=== PATIENT | female | born 1970 | race Caucasian/White ===

== ENCOUNTER 2025-09-20 19:17 | Inpatient (IN) | payer BC, SELFPAY ==
[2025-09-20] VITALS (9 sets, daily range): BP systolic 110–167; BP diastolic 68–104; PULSE 84–129; RESP 18–98; TEMP 36.3; O2SAT 97–98; BMI 34.3; BMI 34.9
--- NOTE | 2025-09-20 19:22 | EKG_ITS ---
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
--- NOTE | 2025-09-20 19:42 | XR_ITS ---
EXAMINATION: AP chest single view TECHNIQUE: AP portable upright chest single view Date and time: September 20, 2025, 1954 hours INDICATIONS: Arrhythmia cardiac palpitations today. FINDINGS: Mild prominence left ventricle No pneumonia or pulmonary edema. Moderate osteopenia IMPRESSION: No pneumonia or pulmonary edema
--- NOTE | 2025-09-20 19:42 | PD.EDARRY ---
ED Arrhythmia Palp. RME/HPI General Chief Complaint: Arrhythmia/Palpitations Stated Complaint: HEART RACING Time Seen by Provider: 09/20/25 19:44 Arrival date/time: 09/20/25 19:17 RME / HPI RME / HPI narrative: See [facility] for Dr. Wells's HPI Documentation. Related Data Home Medications ?Medication ?Instructions ?Recorded ?Confirmed levothyroxine 75 mcg tablet 75 mcg PO DAILY ##0 09/29/12 09/20/25 (Synthroid) Hydroxychloroquine Sulfate 200 mg PO QDAY ##30 05/29/16 09/20/25 abatacept 125 mg/mL subcutaneous 125 mg subcut QDAY 09/20/25 09/21/25 auto-injector (Orencia ClickJect) Allergies Allergy/AdvReac Type Severity Reaction Status Date / Time erythromycin base AdvReac Mild Nausea/Vomi Verified 06/01/16 15:07 tiing Review of Systems Review of Systems Systems Reviewed: All systems reviewed, normal except as documented Past Medical History Past Medical History CARDIAC: Positive Atrial Fibrillation ENDOCRINE: Positive Hypothyroidism ED Exam Narrative Physical exam: See [facility] for Dr. Wells's Physical Exam Documentation. Course Quality Measures none Orders Category Date Time Status EKG (ED ONLY) *Do not use* NOW Care 09/20/25 19:22 Completed EKG (ED Only) Stat Exams 09/20/25 19:22 Draft Vital Signs Vital signs: Vital Signs Temperature 97.4 F 09/20/25 19:38 Pulse Rate 118 H 09/20/25 19:38 Respiratory Rate 18 09/20/25 19:38 Blood Pressure 167/92 H 09/20/25 19:38 Pulse Oximetry (%) 98 09/20/25 19:38 Oxygen Delivery Method Room Air 09/20/25 19:38 Arrhythmia/Palpitations [facility] Narrative [facility] Narrative:: This section includes all my notes and documentations, including HPI, PE, and ED course. 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 Last episode several years ago. Hasn't taken Eliquis or metoprolol for several years. Slight chest discomfort. No syncope or near syncope. No unusual fatigue or malaise. No leg pain or swelling. No other complaints. ROS: All negative except as documented in HPI. Physical Exam: General: Alert and oriented. No acute distress when remaining still. Eyes: Conjunctivae and lids clear. ENT: No nasal congestion. Neck: Supple. Heart: Irregularly irregular (110 bpm). Lungs: No respiratory distress. Good air movement. No rhonchi, wheezing, rales. Abdomen: Soft and nontender. Skin: Warm and dry. Neuro: Alert and oriented X 3. I reviewed all diagnostic test results: My interpretation of the EKG is: Atrial fibrillation with RVR (110 bpm) with nonspecific ST-T changes. My interpretation of the chest x-ray is: NAD. Blood tests unremarkable, except K 3.4. UA remarkable for 1+ bacteria. At this point, diagnoses include: Atrial Fibrillation with RVR UTI Hypokalemia Treatment here included: Cardizem 15 mg bolus (RVR resolved) Eliquis 10 mg PO Oral KCl 20 mEq Rocephin 1 g IV ordered (patient declined) When RVR returned frequently, Cardizem drip started. I discussed the case with Dr. Shaffer, patient's security incident response engineer, and our hospitalist. About the presentation and exam and diagnostics and treatments here. And need of further care in the hospital. Will accept the patient. Peter Wells MD Patient data External records reviewed:: [facility] previous records (Reviewed most recent ED records from 01/13/21. Patient was seen for Atrial fibrillation with rapid ventricular response.) Clinical information provided by:: patient Social determinants that could affect healthcare access:: none Patient has the following chronic illnesses:: None reported How is presenting disease/condition affected by chronic disease/condition?: no chronic disease Evaluation data The following diagnostics were reviewed and interpreted by me:: EKG tracing(s) (My interpretation of the EKG is: Atrial fibrillation with RVR (110 bpm) with nonspecific ST-T changes. Peter Wells MD) Lab and/or radiology exams considered but not ordered:: None Interpretation Summary: I reviewed all diagnostic test results: My interpretation of the EKG is: Atrial fibrillation with RVR (110 bpm) with nonspecific ST-T changes. My interpretation of the chest x-ray is: NAD. Blood tests unremarkable, except K 3.4. UA remarkable for 1+ bacteria. Medications / Prescriptions Medications or Prescriptions considered but not ordered:: None Medication administrations:: Treatment here included: Cardizem 15 mg bolus (RVR resolved) Eliquis 10 mg PO Oral KCl 20 mEq Rocephin 1 g IV ordered (patient declined) Consultations Consultation(s) initiated? (list below): Yes Consultation #1 (Physician, Specialty, Details): I discussed the case with Dr. Shaffer, patient's security incident response engineer, and our hospitalist. About the presentation and exam and diagnostics and treatments here. And need of further care in the hospital. Will accept the patient. Diagnosis Differential diagnosis arrhythmia/palpitations: palpitations, anxiety, sinus tachycardia, artial fibrillation, artial flutter, ventricular premature beats, supraventricular tachycardia and ventricular tachycardia Most likely diagnosis given after review of the tests above:: Atrial Fibrillation with RVR UTI Hypokalemia Admission Indicated Admission indicated?: indicated Explain why admission is indicated or not indicated:: Atrial Fibrillation with RVR UTI Hypokalemia Admission Request Was there a request for admission?: Yes Admission Attestation Admission request attestation: Discussed case with Hospitalist service regarding admission. Discussed patients ED course, exam findings, labs, and radiology results. Agreed to accept the patient for admission. Disposition Plan Disposition Plan: Admit Discharge Plan Plan Patient Disposition: Admit Acute Care w/in Hospital Problem List Clinical Impression: Atrial fibrillation with RVR, UTI (urinary tract infection), Hypokalemia
[2025-09-20] MEDS: DILTIAZEM INJ 5 MG/ML VIAL 5 ML 15 MG IV (20:06)
[2025-09-20 20:15] LABS: Collection Type, Urine Clean Catch
[2025-09-20 20:36] LABS: Bacteria,Urine 1+; Bilirubin,Urine Negative (Negative); Blood,Urine Negative (Negative); Clarity,Urine Clear (Clear/Hazy); Color,Urine Colorless (Lt Yel-Yel); Glucose, Urine Negative (Negative); Ketones,Urine Negative (Negative); Leukocyte Esterase,Urine Negative (Negative); Nitrite,Urine Negative (Negative); PH,Urine 6.5 (5.0-7.0); Protein,Urine Negative (Neg - Trace); RBC,Urine 1 /hpf (0-3); Specific Gravity,Urine 1.007 (1.001-1.035); Squamous Epithelial Cell,Urine 1 /hpf (0-5); Urobilinogen,Urine Negative mg/dL (0.0-1.0); WBC,Urine 1 /hpf (0-5)
[2025-09-20 20:37] LABS: Basophils # (Auto) 0.1 Thou/mm3 (0.0-0.2); Basophils % (Auto) 1 % (0-2.5); Eosinophils # (Auto) 0.4 Thou/mm3 (0.0-0.5); Eosinophils % (Auto) 4 % (0-10); Hematocrit 35.7 % (36.0-46.0); Hemoglobin 10.2 g/dL (12.0-16.0); Immature Granulocytes Auto 0.03 Thou/mm3 (0.00-0.00); Lymphocytes # (Auto) 3.3 Thou/mm3 (1.0-4.8); Lymphocytes % (Auto) 37 % (10-50); Mean Corpuscular HGB Conc 28.6 g/dl (31.0-37.0); Mean Corpuscular Hemoglobin 20.1 pg (25.0-35.0); Mean Corpuscular Volume 70 fL (80-100); Monocytes # (Auto) 0.9 Thou/mm3 (0.0-0.8); Monocytes % (Auto) 10 % (0-12); Neutrophils # (Auto) 4.3 Thou/mm3 (1.8-7.7); Neutrophils % (Auto) 48 % (37-80); Nucleated Red Blood Cell # 0.00 Thou/mm3 (0.00-0.00); Nucleated Red Blood Cell % 0 /100 WBC (0); Platelet Count 321 Thou/mm3 (140-440); RDW Standard Deviation 47.4 fL (36.4-46.3); Red Blood Count 5.07 Miln/mm3 (4.00-5.20); White Blood Count 8.9 Thou/mm3 (3.6-11.0)
[2025-09-20 20:38] LABS: Culture Indicated,Urine Yes
[2025-09-20 20:52] LABS: D-Dimer < 250 ng/mL (<600)
[2025-09-20 20:56] LABS: B-Type Natriuretic Peptide 39 pg/mL (0-100)
[2025-09-20 20:58] LABS: Alanine Aminotransferase 76 U/L (10-49); Albumin, Serum 4.8 gm/dL (3.5-5.0); Albumin/Globulin Ratio 1.7 (1.2-2.2); Alkaline Phosphatase 132 U/L (46-116); Anion Gap 10 (7-16); Aspartate Amino Transferase 83 U/L (0-34); BUN/Creatinine Ratio 18 Ratio (12-20); Bilirubin,Direct 0.1 mg/dL (0.0-0.3); Bilirubin,Total 0.4 mg/dL (0.3-1.2); Blood Urea Nitrogen 14 mg/dL (9-23); Calcium 9.9 mg/dL (8.3-10.6); Calcium (Corrected) 9.9 mg/dL (8.5-10.1); Carbon Dioxide 26.2 mMol/L (20.0-31.0); Chloride 107 mMol/L (98-107); Creatinine (Component) 0.8 mg/dL (0.6-1.3); Estimated Creatinine Clearance 88.7 mL/min (>60); Free T4 (Free Thyroxine) 1.37 ng/dL (0.89-1.76); Globulin 2.8 gm/dL (2.3-3.5); Glucose 107 mg/dL (74-106); Magnesium 1.9 mg/dL (1.6-2.6); Osmolality,Calculated 285 (275-295); Potassium 3.4 mMol/L (3.4-5.1); Sodium 143 mMol/L (136-145); Thyroid Stimulating Hormone 2.50 uIU/mL (0.55-4.78); Total Protein 7.6 gm/dL (5.7-8.2); Troponin I < 0.020 ng/mL (0.0-0.045); eGFR > 60 See Note
[2025-09-20 21:00] LABS: INR 0.9 (0.9-1.3); Partial Thromboplastin Time 29.5 Seconds (22.0-36.0); Prothrombin Time 9.8 Seconds (9.0-12.2)
[2025-09-20] MEDS: METOPROLOL SUCCINATE XL 25 MG TABCR 50 MG PO (21:44)
[2025-09-20] MEDS: APIXABAN 2.5 MG TABLET 10 MG PO (21:45)
[2025-09-20] MEDS: POTASSIUM CHLORIDE 10% 20 MEQ/15 ML UDC PO (21:47)
[2025-09-20 22:36] LABS: Free T3 2.7 pg/mL (2.3-4.2)
--- NOTE | 2025-09-20 23:44 | PD.RESHP ---
Documentation for date of: 09/20/25 [facility] History of Present Illness History of present illness: 55-year-old female with a history of paroxysmal atrial fibrillation, diagnosed 4 years ago, presents to the ED with palpitations lasting for 30 minutes. She has a history of intermittent AFib episodes and was previously prescribed beta-blockers and Eliquis for rate and stroke prevention, but stopped both medications after a period of use, citing concerns that the risks outweighed the benefits. The patient attempts Valsalva maneuvers during episodes of palpitations, though it was ineffective this time. Last atrial fibrillation episode was about 4 years ago. She denies chest pain, shortness of breath, dizziness, nausea, vomiting, or lightheadedness, and has no urinary symptoms such as dysuria or frequency. She was previously under the care of Dr. Penn in [place]. ED course: Initial vitals include T97.4, BP 167/92, HR 118, RR 18, O2 sat 98% on room air. Notable labs include WBC within normal range, hemoglobin 10.2, MCV 70, coag panel within normal range, D-dimer negative, potassium 3.4, creatinine 0.8, glucose 107, magnesium 1.9, LFTs mildly elevated with AST 83, ALT 76, alk phos 132, Trope negative, BNP negative, TSH within normal range. EKG showed atrial fibrillation with RVR with rate 110, QTc 430 ms. Chest x-ray showed no pneumonia. In ED patient received diltiazem 50 mg IV, metoprolol 50 mg p.o., apixaban 10 mg p.o., potassium chloride 20 mEq, started on diltiazem drip. Past medical history: As stated above. Allergies: Erythromycin Family history: Noncontributory. Social history: No alcohol use, no smoking, no illicit drug use. Patient admitted for atrial fibrillation with RVR. Review of Systems Review of Systems Narrative Review of Systems: All systems reviewed negative unless stated otherwise above. Exam Vital Signs Temp Pulse Resp BP Pulse Ox O2 Del Method 97.4 F 87 20 138/68 H 97 Room Air 09/20/25 19:38 09/20/25 23:10 09/20/25 23:10 09/20/25 23:10 09/20/25 23:10 09/20/25 23:10 Narrative Exam General: AOx3, no acute distress, able to speak full sentences HEENT: NC/AT, mucous membranes moist, bilateral sclera anicteric Cardiovascular: Known A-fib, S1/S2 present, no murmurs appreciated Pulmonary: clear to auscultation bilaterally, no rales/rhonchi/wheezes Abdominal: soft, non-tender, non-distended, no rebound/guarding, normal bowel sounds present Musculoskeletal: normal ROM, no peripheral edema Skin: warm and dry, intact, no rashes, Neuro: CN II-XII intact, no focal deficits Results: Labs 09/21/25 04:32 09/21/25 04:32 Labs: Short CBC 09/20/25 Range/Units 19:55 WBC 8.9 (3.6-11.0) Thou/mm3 Hgb 10.2 L (12.0-16.0) g/dL Hct 35.7 L (36.0-46.0) % Plt Count 321 (140-440) Thou/mm3 BMP 09/20/25 19:55 Sodium 143 Potassium 3.4 Chloride 107 Carbon Dioxide 26.2 BUN 14 Creatinine 0.8 Glucose 107 H Calcium 9.9 Cardiac Enzymes 09/20/25 Range/Units 19:55 Troponin I < 0.020 (0.0-0.045) ng/mL Liver Function 09/20/25 Range/Units 19:55 Total Bilirubin 0.4 (0.3-1.2) mg/dL Direct Bilirubin 0.1 (0.0-0.3) mg/dL AST 83 H (0-34) U/L ALT 76 H (10-49) U/L Alkaline Phosphatase 132 H (46-116) U/L Albumin 4.8 (3.5-5.0) gm/dL Urine 09/20/25 Range/Units 19:45 Urine Color Colorless A (Lt Yel-Yel) Urine Clarity Clear (Clear/Hazy) Urine pH 6.5 (5.0-7.0) Ur Specific [place] 1.007 (1.001-1.035) Urine Protein Negative (Neg - Trace) Urine Glucose (UA) Negative (Negative) Quality Measures Quality Measures VTE prophylaxis Medications Home Medications and Allergies Home Medications ?Medication ?Instructions ?Recorded ?Confirmed ?Type levothyroxine 75 mcg tablet 75 mcg PO DAILY ##0 09/29/12 09/20/25 History (Synthroid) Hydroxychloroquine Sulfate 200 mg PO QDAY ##30 05/29/16 09/20/25 History abatacept 125 mg/mL subcutaneous 125 mg subcut QDAY 09/20/25 09/21/25 History auto-injector (Orencia ClickJect) Allergies Allergy/AdvReac Type Severity Reaction Status Date / Time erythromycin base AdvReac Mild Nausea/Vomi Verified 06/01/16 15:07 tiing Visit Medications Acetaminophen (Acetaminophen 325 Mg Tablet) 650 mg PO Q6HR PRN PRN Reason: PAIN (1-3) OR FEVER > 100.4 Stop: 10/20/25 23:36 Apixaban (Apixaban 2.5 Mg Tablet) 5 mg PO BID DARSHAN Stop: 10/21/25 08:59 Diltiazem HCl (Diltiazem Er 90 Mg Er Capsule) 120 mg PO Q24H DARSHAN Stop: 10/20/25 23:44 Diltiazem/Sodium Chloride (Diltiazem In Ns 100 Mg) 100 mg in 100 mls @ 5 mls/hr IV .Q20H DARSHAN Stop: 10/20/25 22:38 Last Admin: 09/20/25 22:48 Dose: 5 mg/hr, 5 mls/hr Magnesium Sulfate (Magnesium Sulfate Ivpb) 2 gm in 50 mls @ 25 mls/hr IV X1 ONE Stop: 09/21/25 01:40 Ondansetron HCl (Ondansetron Inj 2 Mg/Ml Inj 2 Ml) 4 mg IVP Q6H PRN; Protocol PRN Reason: NAUSEA OR VOMITING Stop: 10/20/25 23:36 Potassium Chloride (Potassium Chloride 20 Meq Tabcr) 60 meq PO X1 ONE Stop: 09/20/25 23:42 Sennosides (Senna Tablet) 1 tab PO QDAY PRN; Protocol PRN Reason: constipation Stop: 10/20/25 23:36 Discontinued Medications Apixaban (Apixaban 2.5 Mg Tablet) 10 mg PO X1 ONE Stop: 09/20/25 21:05 Last Admin: 09/20/25 21:45 Dose: 10 mg Diltiazem HCl (Diltiazem Inj 5 Mg/Ml Vial 5 Ml) 15 mg IV X1 ONE Stop: 09/20/25 19:43 Last Admin: 09/20/25 20:06 Dose: 15 mg Ceftriaxone Sodium/Dextrose (Rocephin/D5w 1gm Iv Premix) 1 gm in 50 mls @ 100 mls/hr IV X1 ONE Stop: 09/20/25 21:35 Last Admin: 09/20/25 22:30 Dose: Not Given Metoprolol Succinate (Metoprolol Succinate Xl 25 Mg Tabcr) 50 mg PO X1 ONE Stop: 09/20/25 21:05 Last Admin: 09/20/25 21:44 Dose: 50 mg Potassium Chloride (Potassium Chloride 10% 20 Meq/15 Ml Udc) 20 meq PO X1 ONE Stop: 09/20/25 21:07 Last Admin: 09/20/25 21:47 Dose: 20 meq Assessment & Plan Plan 55-year-old female with a history of paroxysmal atrial fibrillation, diagnosed 4 years ago, presents to the ED with palpitations lasting for 30 minutes. Patient admitted for atrial fibrillation with RVR #Paroxysmal A-fib, with RVR EKG (09/20) showed atrial fibrillation with RVR with rate 110 ms, QTc 430 ms. [id number]: 1 Rate: Uncontrolled Rhythm: Irregular AC: Not on anticoagulants Afebrile No source of infection, no UTI symptoms or cough WBC within normal Troponin negative, BNP within normal range, TSH within normal range In ED patient received diltiazem 50 mg IV, metoprolol 50 mg p.o., Eliquis 10 mg p.o., potassium chloride 20 mEq, started on diltiazem drip. Plan ? Patient transitioned to po Diltiazem 30mg q6hr and drip discontinued. ? Cardiology consult placed, Dr. Penn, to see in a.m. ? Started on Eliquis 5 mg twice daily ? Keep magnesium above 2 and potassium above 4 ? Potassium chloride 60 mEq p.o. ? Magnesium sulfate 2 g IV ? Urine culture taken, follow result #Microcytic anemia 2/2 #Iron deficiency Hemoglobin on admission 10.2, MCV 70 Ferritin level low Plan ? IV iron 125 mg daily #Hypothyroidism Patient takes 75 mcg of levothyroxine TSH, free T4 within normal range Plan ? Resume home med Health Maintenance: Diet: Regular GI prophylaxis: None DVT prophylaxis: Eliquis Antibiotics: None indicated at this time CODE STATUS: Full Disposition: Telemetry Case discussed with my attending Dr. Velazquez, and senior resident, Dr. Indira Soto MD PGY-1 Attending Provider Attestation/Addendum After examination of the patient and review of the clinical data I feel that this patient needs admission to the hospital for further treatment/evaluation. Plan of care discussed with patient and is in agreement. I Kenya Velazquez MD, attest that I was physically present for zuniga portions of evaluation, and examined patient, labs and imagings and plan of care were discussed with IM residents team, and I agree with the findings and plans documented above.
[2025-09-21] VITALS (12 sets, daily range): BP systolic 110–141; BP diastolic 50–83; PULSE 46–83; RESP 13–99; TEMP 35.9–36.6; O2SAT 95–98; BMI 35.2
[2025-09-21] MEDS: Magnesium Sulfate 2 GM Ivpb 2 GM/50 ML BAG IV (00:01)
[2025-09-21 00:59] LABS: Ferritin 4 ng/mL (7.3-270.7)
[2025-09-21] MEDS: DILTIAZEM 30 MG TABLET PO ×3 (01:08→12:37)
--- NOTE | 2025-09-21 01:36 | ECHO_ITS ---
Patient Info Name: Zandra Wagner Age: 55 years : 1970 Gender: Female Ht: 163 cm Wt: 92 kg BSA: 2.08 m2 BP: 118 / 57 mmHg HR: 57 bpm Exam Date: 09/21/2025 8:54 AM Admit Date: 09/20/2025 Site: [facility] Room Number: 274 Patient Status: I Exam Type: CA echo doppler complete [place] Agent: Chanelle Fuentes Ordering Physician: Kenya Velazquez Study Info Indications Paroxysmal A.Fib, No echo on file - Primary Location: S2NX Left Ventricular Outflow Tract Name Value Normal LVOT 2D LVOT Diameter 1.6 cm LVOT Doppler LVOT Mean Gradient 3 mmHg LVOT VTI 25 cm LVOT VTI/AV VTI Ratio 1.0 LVOT Stroke Volume 50 ml Pulmonic Valve Name Value Normal PV Doppler PV Peak Velocity 88 cm/s Mitral Valve Name Value Normal MV Annular TDI MV Septal e' Velocity 9.9 cm/s MV Lateral e' Velocity 11.4 cm/s MV e' Average 10.65 cm/s Tricuspid Valve Name Value Normal TV Regurgitation Doppler TR Peak Velocity 171 cm/s Estimated PAP/RSVP RA Pressure 8 mmHg <=5 PA Systolic Pressure 20 mmHg <36 RV Systolic Pressure 20 mmHg <36 TV Annular TDI TV Lateral Krystal s' Velocity 13.5 cm/s >=9.5 Aortic Valve Name Value Normal AV 2D/MM AV Cusp Sep (MM) 1.7 cm AV Doppler AV Peak Velocity 123 cm/s AV Mean Gradient 3 mmHg AV VTI 26 cm AV Area (Cont Eq VTI) 1.9 cm2 >=3.0 AV Regurgitation 2D LVOT Area 2.0 cm2 Ventricles Name Value Normal LV Dimensions 2D/MM IVS Diastolic Thickness (2D) 0.9 cm 0.6-0.9 LVID Diastole (2D) 4.0 cm 3.8-5.2 LVIW Diastolic Thickness (2D) 0.8 cm 0.6-0.9 LVID Systole (2D) 2.9 cm 2.2-3.5 LVOT Diameter 1.6 cm LV Mass (2D Cubed) 101.43 g 67.00-162.00 LV Mass Index (2D Cubed) 49 g/m2 43-95 Relative Wall Thickness (2D) 0.40 <=0.42 IVS/LVIW Diastolic Thickness (2D) 1.13 0.00-1.50 LV Fractional Shortening/Ejection Fraction 2D/MM LV Fractional Shortening (2D) 28 % 27-45 LV EF (2D Teichholz) 54 % RV Dimensions 2D/MM TV Lateral Krystal s' Velocity 13.5 cm/s >=9.5 Atria Name Value Normal LA Dimensions LA Volume (4C A-L) 38 ml LA Volume (BP A-L) 54 ml Left Ventricle Left ventricular chamber dimension is normal. Left ventricular systolic function is normal with visually estimated ejection fraction of 60-65%. Left ventricular segmental wall motion is normal. There is indeterminate diastolic function in the left ventricle. Right Ventricle Right ventricular chamber dimension is normal. Right ventricular systolic function is normal. Left Atrium Left atrial chamber dimension is normal. Right Atrium Right atrial chamber dimension is normal. Aortic Valve The aortic valve is trileaflet. There is no aortic valve sclerosis. There is no aortic valve stenosis with a peak velocity of 123 cm/s, mean gradient of 3 mmHg, and aortic valve area of 1.9 cm2. There is trace aortic valve regurgitation. Pulmonic Valve The pulmonic valve is normal. There is no pulmonic valve stenosis. There is no pulmonic regurgitation. Mitral Valve The mitral valve has normal leaflets. There is no mitral valve stenosis. There is trace mitral valve regurgitation. Tricuspid Valve The tricuspid valve leaflets are normal. There is no tricuspid valve stenosis. There is trace tricuspid valve regurgitation. No pulmonary hypertension, estimated pulmonary arterial systolic pressure is 20 mmHg and systemic blood pressure of 118 mmHg in systole. Pericardium/Pleural The pericardium appears normal. There is no pericardial effusion. No pleural effusion visualized. Inferior Vena Cava Normal inferior vena cava with >50% collapse upon inspiration consistent with normal right atrial pressure, 8 mmHg. Aorta The aortic measurements are indexed to age and body surface area. The aortic root at the sinus of Valsalva is not well visualized. The prox ascending aorta is not well visualized. Summary 1. Left ventricle size is normal and systolic function is normal. Estimated ejection fraction is 60-65%. There is indeterminate diastolic function. There is normal geometry noted. 2. Right ventricle chamber size is normal and systolic function is normal. Estimated RVSP is 20 mmHg. 3. There is trace aortic valve regurgitation. 4. There is trace mitral valve regurgitation. 5. There is trace tricuspid valve regurgitation. 6. The left atrium is normal. The right atrium is normal. 7. Normal IVC with estimated RA pressure 8 mmHg. Report Signatures Finalized by Deena Penn on 09/21/2025 02:16 PM
[2025-09-21 05:27] LABS: Basophils # (Auto) 0.1 Thou/mm3 (0.0-0.2); Basophils % (Auto) 1 % (0-2.5); Eosinophils # (Auto) 0.5 Thou/mm3 (0.0-0.5); Eosinophils % (Auto) 5 % (0-10); Hematocrit 33.8 % (36.0-46.0); Hemoglobin 9.7 g/dL (12.0-16.0); Immature Granulocytes Auto 0.03 Thou/mm3 (0.00-0.00); Lymphocytes # (Auto) 2.9 Thou/mm3 (1.0-4.8); Lymphocytes % (Auto) 31 % (10-50); Mean Corpuscular HGB Conc 28.7 g/dl (31.0-37.0); Mean Corpuscular Hemoglobin 20.5 pg (25.0-35.0); Mean Corpuscular Volume 71 fL (80-100); Monocytes # (Auto) 0.9 Thou/mm3 (0.0-0.8); Monocytes % (Auto) 9 % (0-12); Neutrophils # (Auto) 5.0 Thou/mm3 (1.8-7.7); Neutrophils % (Auto) 54 % (37-80); Nucleated Red Blood Cell # 0.00 Thou/mm3 (0.00-0.00); Nucleated Red Blood Cell % 0 /100 WBC (0); Platelet Count 310 Thou/mm3 (140-440); RDW Standard Deviation 47.4 fL (36.4-46.3); Red Blood Count 4.74 Miln/mm3 (4.00-5.20); White Blood Count 9.4 Thou/mm3 (3.6-11.0)
[2025-09-21] MEDS: LEVOTHYROXINE SODIUM 25 MCG TABLET 75 MCG PO (05:36)
[2025-09-21 05:45] LABS: Alanine Aminotransferase 65 U/L (10-49); Albumin, Serum 4.3 gm/dL (3.5-5.0); Albumin/Globulin Ratio 1.8 (1.2-2.2); Alkaline Phosphatase 114 U/L (46-116); Anion Gap 7 (7-16); Aspartate Amino Transferase 53 U/L (0-34); BUN/Creatinine Ratio 16 Ratio (12-20); Bilirubin,Total 0.5 mg/dL (0.3-1.2); Blood Urea Nitrogen 11 mg/dL (9-23); Calcium 8.9 mg/dL (8.3-10.6); Calcium (Corrected) 8.9 mg/dL (8.5-10.1); Carbon Dioxide 26.0 mMol/L (20.0-31.0); Cardiac Risk Estimate 3.2 RATIO (3.7-5.6); Chloride 110 mMol/L (98-107); Cholesterol 153 mg/dL (132-200); Creatinine (Component) 0.7 mg/dL (0.6-1.3); Estimated Creatinine Clearance 102.7 mL/min (>60); Globulin 2.4 gm/dL (2.3-3.5); Glucose 102 mg/dL (74-106); HDL Cholesterol 48 mg/dL (40-60); LDL Cholesterol,Calculated 89 mg/dL (0-130); Magnesium 2.4 mg/dL (1.6-2.6); Osmolality,Calculated 284 (275-295); Phosphorous 3.2 mg/dL (2.4-5.1); Potassium 4.4 mMol/L (3.4-5.1); Sodium 143 mMol/L (136-145); Total Protein 6.7 gm/dL (5.7-8.2); Triglycerides 81 mg/dL (30-150); eGFR > 60 See Note
[2025-09-21 05:51] LABS: Iron 16 mcg/dL (50-170); Percent Iron Saturation 3 % (20-55); Total Iron Binding Capacity 402 mcg/dL (250-425); Unsaturated Iron Binding 386 (225-295)
[2025-09-21] MEDS: APIXABAN 2.5 MG TABLET 5 MG PO (08:59)
[2025-09-21] MEDS: FERRIC SOD GLUC INJ 125 MG in SODIUM CHLORIDE 0.9% 100 ML 110 MG IV (09:00)
--- NOTE | 2025-09-21 11:21 | PC.SS ---
Form Drafter (QUETA Lynn met with the patient at bedside to complete an initial assessment and discuss a discharge plan. Patient is alert and oriented to person, place, time, and situation, and provided verbal consent to participate in the assessment. The patient has a history of paroxysmal atrial fibrillation, diagnosed 4 years ago, and presents to the ED with palpitations lasting for 30 minutes. The patient was admitted for atrial fibrillation with RVR. Patient is Zandra Wagner, 55 y/o Mexican-speaking female residing alone at [address] [place] [address]. Patient designated her daughter, Taty Wagner, , as her surrogate medical decision maker. Patient is employed and manages her own finances. Patient reports baseline is independent with no DME. Patient's PCP is Dr. Grady at [facility]. Patient's discharge plan is home independent; her car is parked in the hospital parking lot?no needs reported at this time. Surrogate medical decision maker: Daughter, Taty, Discharge plan: Home, car is parked in the hospital parking lot Discharge rounds: Cardiology was consulted, pending recs.
[2025-09-21] MEDS: FLECAINIDE ACET 50 MG TABLET 100 MG PO (14:46)
[2025-09-21] MEDS: PANTOPRAZOLE 40 MG TABLET PO (14:46)
[2025-09-21] MEDS: CALCIUM CARBONATE 600 MG TABLET PO (14:46)
[2025-09-21] MEDS: MG HYD/AL HYD/SIME (Maalox Reg) SUSP 30 ML UDC PO (14:46)
--- NOTE | 2025-09-21 15:06 | ESDS_ITS ---
<Statement entered by Inocente Lagos MD - 09/21/25 17:28> Patient seen and examined at bedside. I discussed and supervised with the summer internship physician who took care of this patient. I personally saw and examined the patient. I agree with most of the assessment and plan. Plan of care discussed with attending Dr. Spivey. Inocente Lagos MD PGY-2 Planned Discharge Date 09/21/25 DS: Providers Provider Date of admission: 09/20/25 23:37 Primary care physician: CARI ALLISON Admitting Provider: Kenya Velazquez MD Attending Provider on Admission: Kenya Velazquez MD Consults: 09/20/25 22:38 Consult to Cardiology Stat Comment: Consulting Provider: Deena Penn Instructions: Atrial fibrillation with RVR Attending Provider on DC: Mayo Spivey DO Discharging Provider: Brook Howard DO DS: Diagnosis Problem List Completed Was Problem List Reviewed/Reconciled?: Yes Hospital Course Hospital Course Hospital course: 55-year-old female with a history of paroxysmal atrial fibrillation, diagnosed 4 years ago, presented to the ED on 09/20/2025 with palpitations lasting for 30 minutes. She was previously prescribed beta-blockers and Eliquis for rate and stroke prevention, but stopped both medications after a period of use, citing concerns that the risks outweighed the benefits. Last atrial fibrillation episode was about 4 years ago. EKG showed atrial fibrillation with RVR with rate 110, QTc 430 ms. Patient admitted for atrial fibrillation with RVR. Chest x-ray showed no pneumonia. She was previously under the care of Dr. Penn in [place]. Dr. Penn consulted. In ED patient received diltiazem 50 mg IV, metoprolol 50 mg p.o., apixaban 10 mg p.o., potassium chloride 20 mEq, started on diltiazem drip. Labs were notable for negative tropes, negative BNP, TSH within normal range, mildly elevated LFTs AST 83, ALT 76, alk phos 132. After the completion of diltiazem drip, patient was transitioned to p.o. diltiazem 30 mg Q6h. restarted on Eliquis 5 mg bid. Cardiac echo showed evidence of normal left ventricular function, EF 65%, mild mitral regurgitation, unchanged, normal size left atrium, and normal size left ventricle. Choice of antiarrhythmic was changed to flecainide 100 mg bid and Cardizem CD100 80 mg daily by cardiology. Furthermore, noted to have low iron 16, iron saturation 3%, and high unsaturated iron binding 386 on labs and patient will benefit from iron supplementation outpatient. Patient did not develop second episode of RVR during her hospital stay, though she remained in A-fib. At the time of discharge, patient is medically stable and deemed safe to return to his/her previous state of living. Admission diagnosis: #Paroxysmal A-fib, with RVR #Microcytic anemia #Microcytic anemia #Iron deficiency #Hypothyroidism Discharge instructions: You have been started on the following medications: - Eliquis 5mg twice daily - Diltiazem 180mg once daily - Flecainide 100mg twice daily Continue taking all other medications as previously prescribed. Please follow up with your primary doctor in 7-10 days. Return to ED if you develop new or worsening symptoms. Return to ED if you develop signs of bleeind, including dark or bloody stool, or if you experience a fall and hit your head. This case was discussed with my attending physician, Dr. Spivey, and senior resident, Dr Leroy. 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 Brook Howard DO PGY I Time Spent with Patient Time attestation: Total time spent providing and/or coordinating discharge services: Time spent: Greater than 30 minutes Exam Vital Signs Temp Pulse Resp BP Pulse Ox O2 Del Method 97.5 F 83 13 136/70 H 98 Room Air 09/21/25 12:00 09/21/25 14:46 09/21/25 12:00 09/21/25 14:46 09/21/25 12:00 09/21/25 12:00 Narrative Exam General: AOx3, no acute distress, able to speak full sentences HEENT: NC/AT, mucous membranes moist, bilateral sclera anicteric Cardiovascular: Irregularly irregular rhythm, S1/S2 present, no murmurs appreciated Pulmonary: clear to auscultation bilaterally, no rales/rhonchi/wheezes Abdominal: soft, non-tender, non-distended, no rebound/guarding, normal bowel sounds present Musculoskeletal: normal ROM, no peripheral edema Skin: warm and dry, intact, no rashes, Neuro: CN II-XII intact, no focal deficits Discharge Plan Plan Patient Disposition: HOME (Self Care) Patient condition on transfer: Stable Care Plan Goals: You have been started on the following medications: - Eliquis 5mg twice daily - Diltiazem 180mg once daily - Flecainide 100mg twice daily Continue taking all other medications as previously prescribed. Please follow up with your primary doctor in 7-10 days. Return to ED if you develop new or worsening symptoms. Return to ED if you develop signs of bleeind, including dark or bloody stool, or if you experience a fall and hit your head. Prescriptions/Referrals Prescriptions/Med Rec: New diltiazem HCl 180 mg Capsule,Extended Release 24hr 180 mg PO QDAY 30 Days Qty: 30 2RF flecainide 100 mg tablet 100 mg PO Q12H 30 Days Qty: 60 0RF Eliquis 5 mg tablet 5 mg PO BID 30 Days Qty: 60 0RF Continued levothyroxine [Synthroid] 75 MCG tablet 75 mcg PO DAILY Qty: 0 Hydroxychloroquine Sulfate 200 MG tablet 200 mg PO QDAY Qty: 30 Orencia ClickJect 125 mg/mL auto-injector 125 mg SUBCUT QDAY Referrals: CARI ALLISON [Primary Care Provider] Patient/Caregiver Discharge Instructions Discharge Activity: activity as tolerated Education Materials: Using Blood Thinners Anticoagulants, AFL/Afib, Understanding Atrial Fibrillation Print Language: Greek Stand Alone Forms: [facility] Award Info., Patient Portal Info Letter Discharge Order Discharge Orders: Discharge (Routine); Ordered 09/21/25 Ordered By: Inocente Lagos Quality Discharge Quality Measures VTE prophylaxis Attestestation MD Attestation I have discussed and was present for the essential components of the discharge history, physical examination, diagnosis, and discharge treatment plan with the resident. I agree with the patient's discharge care as documented by the resident and amended herein by me. Skinny Spivey DO. The patient understood all discharge instructions, all questions were answered satisfactorily. The patient was instructed to return to the Emergency Department is symptoms worsened or persisted.Patient was stable, afebrile, tolerating p.o. intake and ambulatory at time of discharge home., Patient cleared for discharge by cardiology, we advised the patient extensively on the necessity of medication compliance, will be discharged on Eliquis, diltiazem and flecainide per cardiology recommendations. Patient understood all instructions, all questions answered satisfactorily. Although this document has been carefully reviewed, there may still be some phonetic and other typographical errors. These errors are purely grammatical due to imperfections in the software program and should not be construed in any way to compromise the substance of the patient's medical care during this visit.
--- NOTE | 2025-09-21 15:25 | ESCONSULT_ITS ---
RE: OLIVIA GIRALDO : 1970 DATE OF CONSULTATION: 09/21/2025 CONSULTING PHYSICIAN: Hospitalist. REASON FOR CONSULTATION: Evaluation of atrial fibrillation paroxysmal episode. CHIEF COMPLAINT: Palpitations. HISTORY OF PRESENT ILLNESS: The patient is a 55-year-old female who is very well known to me, has a longstanding history of paroxysmal atrial fibrillation, has had episodes every 3-4 years, last episode 2020. 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 Was doing fairly well until yesterday. Apparently, she had Dr Pepper and tea, etc., and she developed around 8:30 p.m. atrial fibrillation, moderate rapid ventricular response. She was given IV diltiazem 15 mg and p.o. diltiazem 30 mg. Rate controlled well. Initial blood pressure was high 160/90 but quite normal now. She is on a low dose 30 mg diltiazem p.o. controlling her heart rate quite well. She remains in atrial fibrillation, controlled rate. Lab data are unremarkable except for anemia, hemoglobin 10.2 on admission and MCV of 70, MCH 20, microcytic anemia, iron deficiency. She does not have any active blood loss, apparently had a colonoscopy that is negative. Patient is feeling fairly well, wants to go home. She remains in atrial fibrillation, rate controlled well, less than 24 hours from onset. She normally converts to sinus rhythm on her own within 24 hours, but this time she is still in A-fib about 18 hours into the A-fib episode. She has no chest pain, shortness of breath, orthopnea, PND. Has had some mild palpitations. Cardiac echo showed evidence of normal left ventricular function, EF 65%, mild mitral regurgitation, unchanged, normal size left atrium, and normal size left ventricle, no other abnormalities. ALLERGIES: NONE. MEDICATIONS: She takes: 1. Levothyroxine for hypothyroidism. She doses herself 75 mcg daily. 2. Hydroxychloroquine 200 mg daily. 3. Orencia for psoriatic arthritis subcutaneous injections. PAST MEDICAL HISTORY: Psoriatic arthritis and history of paroxysmal atrial fibrillation, one episode every 4 years, hypothyroidism. SOCIAL HISTORY: Patient lives by herself, does not smoke or drink alcoholic beverages, does drink coffee. 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 FAMILY HISTORY: Noncontributory. REVIEW OF SYSTEMS: CARDIOVASCULAR SYSTEM: As discussed in HPI. Rest of review of systems is negative. PHYSICAL EXAMINATION: GENERAL: Well-nourished, thin-built female. Alert, awake, and in no acute distress. VITAL SIGNS: Her blood pressure initially high, now 136/70, pulse 83, respirations 16, temperature normal 98, room air saturation 98%. HEENT: Head is atraumatic, normocephalic. Eyes normal. ENT: Normal. NECK: Supple. No JVD. Carotid pulse is full with no bruit. CHEST AND LUNGS: Clear. HEART: S1, S2 irregular, atrial fibrillation. ABDOMEN: Thin and soft. EXTREMITIES: No edema. GENITOURINARY AND RECTAL: Not performed. NEUROLOGIC: Exam normal. DIAGNOSTIC DATA: Electrocardiogram shows atrial fibrillation, nonspecific ST-T segment changes. IMPRESSION: 1. Paroxysmal atrial fibrillation with atrial fibrillation, rapid rate; rate control now. 2. Negative cardiac workup, normal cardiac echo. 3. Microcytic anemia, possible iron deficiency anemia. Etiology undetermined. 4. Mild hypertension on admission. 5. Hypothyroidism, on Synthroid. RECOMMENDATION AND DISCUSSION: Patient will be given flecainide 100 mg x1 and 100 mg twice daily, this should work. Most of the time she does convert to sinus rhythm. Continue Eliquis 5 mg b.i.d. until she converts to sinus rhythm. Her CHADS-VASc score is 1. No other risk factor, hence risk of stroke is low. No need for prolonged anticoagulation, but until she converts to sinus rhythm, Eliquis 5 mg twice daily to be given. Recommend discharging home on flecainide 100 mg twice daily, Cardizem CD 180 mg daily, Eliquis 5 mg twice daily, iron supplements and also recommended to have GI workup for microcytic anemia and also look for other source of bleeding. Would like to thank for referring this patient for cardiovascular evaluation. Would be glad to follow her as an outpatient following discharge. DT: 15:01:41 TT: 15:24:00 Ref: [id number] - TID: [id number]
== END 2025-09-21 17:24 | disposition home or self-care (01) | DRG 310 ==
LOC: SERX 22:42 → SERHOLD 23:50 → S2NX 09-21 01:17
PROVIDERS: Admitting Provider Student in an Organized Health Care Education/Training Program; Emergency Provider Emergency Medicine; PCP Nurse Practitioner Family; Visit Provider Student in an Organized Health Care Education/Training Program
DX: I48.0 Paroxysmal atrial fibrillation (principal); D50.9 Iron deficiency anemia, unspecified; E03.9 Hypothyroidism, unspecified; E87.6 Hypokalemia; I10 Essential (primary) hypertension; Z79.01 Long term (current) use of anticoagulants; Z79.899 Other long term (current) drug therapy; Z88.8 Allergy status to other drugs, medicaments and biological substances
CPT/HCPCS: 36415; 71045; 80053; 80061; 81001; 82248; 82728; 83540; 83550; 83735; 83880; 84100; 84439; 84443; 84481; 84484; 85025; 85379; 85610; 85730; 87086; 93005; 93306; 99284; J2916; J3475; J3490; J7050; A9270